=== PATIENT | male | born 1980 | race Caucasian/White ===

== ENCOUNTER 2023-05-28 20:44 | Emergency (ER) | payer MEDICAID, SELFPAY ==
[2023-05-28 20:50] VITALS: BP 200/139; PULSE 73; RESP 16; TEMP 36.3; O2SAT 98; BMI 26.2
--- NOTE | 2023-05-28 20:59 | XRR_ITS ---
PROCEDURE INFORMATION: Exam: XR Chest Exam date and time: 05/28/2023 9:12 PM Age: 43 years old Clinical indication: Other: Hypertensive; Additional info: HTN TECHNIQUE: Imaging protocol: Radiologic exam of the chest. Views: 1 view. COMPARISON: No relevant prior studies available. FINDINGS: Lungs: Clear, symmetrically inflated lungs. Pleural spaces: No pleural effusion. No pneumothorax. Heart/Mediastinum: Cardiac silhouette is normal in size for technique. Bones/joints: Age appropriate. XR/XR chest 1V portable [id number] IMPRESSION: No acute cardiopulmonary abnormality.
--- NOTE | 2023-05-28 21:03 | W.ED.GENADLT ---
HPI - General Adult General: Chief complaint: General Medical Stated complaint: High Blood Pressure Time Seen by Provider: 05/28/23 20:59 History of Present Illness: 43-year-old male patient comes in today with headache and elevated blood pressure. Patient reports he has had blood pressure high for several years now but has been without treatment for the last 2 years. Patient had been on lisinopril up to about 2 years ago. 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 Patient appears nontoxic. Patient reports no chest pain or shortness of breath. Associated symptoms: Reports headache(s); Deny chest pain or dyspnea Review of Systems General: Reports: 10 or more systems reviewed and unremarkable except in HPI and below Card: Denies: chest pain Resp: Denies: dyspnea Neuro: Reports: headache(s) Physical Exam Const: COMMON NORMALS: alert HENMT: COMMON NORMALS: normocephalic HEAD & SCALP: normocephalic Neck/C-Spine: COMMON NORMALS: full ROM and no meningeal signs Resp: COMMON NORMALS: normal respiratory effort and clear to auscultation bilaterally AUSCULTATION: clear to auscultation bilaterally Cardio: COMMON NORMALS: regular rate and regular rhythm RATE: regular rate RHYTHM: regular rhythm GI: COMMON NORMALS: Soft to palpation and non-tender PALPATION: Yes Soft to palpation Back/Pelvis: COMMON NORMALS: thoracic and lumbar spine normal to inspection Extremity: COMMON NORMALS: no pedal edema Neuro: SENSORIUM/ORIENTATION: Yes alert MENINGEAL SIGNS: Yes no meningeal signs Skin: COMMON NORMALS: turgor normal GENERAL SKIN EXAM: turgor normal Course Vital Signs: Vital signs: Vital Signs Temperature 97.4 F L 05/28/23 20:50 Pulse Rate 73 05/28/23 20:50 Respiratory Rate 16 05/28/23 20:50 Blood Pressure 200/139 05/28/23 20:50 Pulse Oximetry 98 05/28/23 20:50 Oxygen Delivery Me thod Room Air 05/28/23 20:50 [facility] - General Adult Medical Decision Making 43-year-old male patient presents today with complaints of elevated blood pressure and headache. Patient appears nontoxic. No focal neural deficits were noted. Patient moves all extremities well. Skin is warm and dry. No edema is noted in the extremities. Lungs are clear to auscultation. Vital signs no elevated blood pressure 200/139. Differential diagnosis includes uncontrolled hypertension, substance use disorder, CHF, CKD, hypertensive emergency. EKG showed no abnormalities. Chest x-ray was normal. CBC and CMP were unremarkable. BNP was normal. Patient was given 20 of labetalol which brought blood pressure down to 170/110. Patient was also given 20 mg of lisinopril. Patient be continued on 20 mg lisinopril with recommendations for follow-up with primary care for recheck of blood pressure in 1 week. Patient reported understanding of care plan and need for follow-up or return to the ER. Patient was stable and discharged home. Lab Data 05/28/23 21:15 05/28/23 21:15 Radiology Impressions Chest X-Ray 05/28/23 20:59 IMPRESSION: No acute cardiopulmonary abnormality. Laboratory Results WBC 7.77 10^3/uL (3.29-11.43) 05/28/23 21:15 RBC 4.78 10^6/uL (3.85-5.65) 05/28/23 21:15 Hgb 14.40 g/dL (11.27-16.99) 05/28/23 21:15 Hct 42.7 % (37-53) 05/28/23 21:15 MCV 89.3 fl (82-101) 05/28/23 21:15 MCH 30.1 pg (27-33) 05/28/23 21:15 MCHC 33.7 g/dL (30-55) 05/28/23 21:15 RDW 13.0 % (12.1-15.1) 05/28/23 21:15 Plt Count 306 10^3/cmm (157-399) 05/28/23 21:15 MPV 9.4 fL (7.4-10.4) 05/28/23 21:15 Neut % (Auto) 54.6 % 05/28/23 21:15 Lymph % (Auto) 30.6 % 05/28/23 21:15 [place] % (Auto) 10.2 % 05/28/23 21:15 Eos % (Auto) 4.0 % 05/28/23 21:15 Baso % (Auto) 0.3 % 05/28/23 21:15 Neut # (Auto) 4.25 10^3/uL (1.8-7.7) 09/16/23 21:15 Lymph # (Auto) 2.4 10^3/uL (0.8-4.8) 05/28/23 21:15 [place] # (Auto) 0.8 10^3/uL (0.2-0.9) 05/28/23 21:15 Eos # (Auto) 0.3 10^3/uL (0.0-0.8) 05/28/23 21:15 Baso # (Auto) 0.0 10^3/uL (0.0-0.1) 05/28/23 21:15 Nucleated RBC % (auto) 0 % 05/28/23 21:15 Nucleated RBCs # 0.0 /100WBC 05/28/23 21:15 Sodium 140 mmol/L (136-145) 05/28/23 21:15 Potassium 3.9 mmol/L (3.5-5.1) 05/28/23 21:15 Chloride 105 mmol/L (98-107) 05/28/23 21:15 Carbon Dioxide 28 mmol/L (22-29) 05/28/23 21:15 Anion Gap 10.9 (5-19) 05/28/23 21:15 BUN 15 mg/dL (6-20) 05/28/23 21:15 Creatinine 0.9 mg/dL (0.7-1.2) 05/28/23 21:15 GFR Calculation 91.7 mL/min (90-130) 05/28/23 21:15 Glucose 96 mg/dL (65-115) 05/28/23 21:15 Calculated Osmolality 291 mOsm/kg (285-295) 05/28/23 21:15 Calcium 8.7 mg/dL (8.5-10.5) 05/28/23 21:15 Total Bilirubin 0.2 mg/dL (0.15-1.2) 05/28/23 21:15 AST 13 U/L (0-40) 05/28/23 21:15 ALT 10 U/L (0-41) 05/28/23 21:15 Alkaline Phosphatase 63 U/L (40-130) 05/28/23 21:15 NT-Pro-B Natriuret Pep 36 pg/mL (0-125) 05/28/23 21:15 Total Protein 6.6 g/dL (6.6-8.7) 05/28/23 21:15 Albumin 3.9 g/dL (3.5-5.2) 05/28/23 21:15 Globulin 2.7 g/dL (1.3-4.6) 05/28/23 21:15 All radiology interpretation(s) finalized by discharge EKG Data EKG 1: EKG interpretation date: 05/28/23 EKG interpretation time: 21:55 Prior EKG tracings: not available for review Interpretation: Sinus rhythm with a regular rate at [address] elevation or ectopy is noted. No prior exam was available for comparison. Computer generated interpretation: Chest X-Ray 05/28/23 20:59 IMPRESSION: No acute cardiopulmonary abnormality. Computer reported EKG is sinus bradycardia, borderline EKG, unconfirmed report. Discharge Plan Discharge Patient Disposition: Home Clinical Impression: Hypertension, uncontrolled Condition: Stable Prescriptions: New lisinopril 20 mg tablet 10 mg PO DAILY Qty: 30 3RF Discharge Orders: Discharge ED (Routine); Ordered 05/28/23 Ordered By: Lamine Hernandez Discharge Diet: Usual diet Discharge Activity: Increase activity as tolerated Patient Instructions: Hypertension (ED) Activity Restrictions/Additional Instructions: Home and rest. Activity as tolerated. Drink plenty of water and fluids. Take lisinopril 20 mg daily. When starting the medication may need to change positions slowly as it may cause lightheadedness or dizziness with sudden movements or standing too quickly. Usually this resolves as your body adjusts to the change in your blood pressure. Use acetaminophen as needed for pain. Follow-up with primary care in 1 to 2 weeks for recheck. Return to ED for new concerns. Coding Level of Care Code ED Ship Rigger for Fitz Peoples
[2023-05-28 21:21] LABS: Basophils % 0.3 %; Eosinophils # 0.3 10^3/uL (0.0-0.8); Hematocrit 42.7 % (37-53); Lymphocytes # 2.4 10^3/uL (0.8-4.8); Lymphocytes % 30.6 %; Mean Corpuscular HGB Conc 33.7 g/dL (30-55); Mean Corpuscular Hemoglobin 30.1 pg (27-33); Mean Corpuscular Volume 89.3 fl (82-101); Mean Platelet Volume 9.4 fL (7.4-10.4); Monocytes # 0.8 10^3/uL (0.2-0.9); Monocytes % 10.2 %; Neutrophils # 4.25 10^3/uL (1.8-7.7); Neutrophils % 54.6 %; Nucleated Red Blood Cells % 0 %; Platelet Count 306 10^3/cmm (157-399); Red Blood Count 4.78 10^6/uL (3.85-5.65); White Blood Count 7.77 10^3/uL (3.29-11.43)
--- NOTE | 2023-05-28 21:49 | ECG_ITS ---
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 Measurements Intervals [place] Rate: 57 P: 21 ND: 149 QRS: 50 QRSD: 84 T: 59 QT: 384 QTc: 374 Interpretive Statements SINUS BRADYCARDIA No previous ECG available for comparison Electronically Signed On 05-29-2023 5:10:11 CDT by Camila Montenegro M.D. [id number]
[2023-05-28] MEDS: labetalol 5 mg/mL SDV 20mL 20 MG IVP (21:51)
[2023-05-28] MEDS: lisinopril 20 mg Tablet PO (21:52)
[2023-05-28 21:59] LABS: Alanine Aminotransferase 10 U/L (0-41); Albumin Level 3.9 g/dL (3.5-5.2); Alkaline Phosphatase 63 U/L (40-130); Anion Gap 10.9 (5-19); Aspartate Amino Transferase 13 U/L (0-40); Blood Urea Nitrogen 15 mg/dL (6-20); Calcium 8.7 mg/dL (8.5-10.5); Carbon Dioxide 28 mmol/L (22-29); Chloride 105 mmol/L (98-107); Globulin 2.7 g/dL (1.3-4.6); Glomerular Filtration Rate 91.7 mL/min (90-130); Glucose 96 mg/dL (65-115); NT Pro B Type Natriuretic Pept 36 pg/mL (0-125); Osmolality Calculated 291 mOsm/kg (285-295); Potassium 3.9 mmol/L (3.5-5.1); Sodium 140 mmol/L (136-145); Total Bilirubin 0.2 mg/dL (0.15-1.2); Total Protein 6.6 g/dL (6.6-8.7)
[2023-05-28 22:24] VITALS: BP 179/111; PULSE 94; RESP 23; O2SAT 97
[2023-05-28 22:58] VITALS: BP 155/99; PULSE 69; RESP 16; O2SAT 97
== END 2023-05-28 22:59 | disposition home or self-care (01) ==
PROVIDERS: Emergency Provider Nurse Practitioner Family
DX: I10 Essential (primary) hypertension (principal)
CPT/HCPCS: 71045; 80053; 83880; 85025; 93005; 96374; 99285; J3490

== ENCOUNTER 2023-05-31 21:31 | Emergency (ER) | payer MEDICAID, SELFPAY ==
[2023-05-31 21:38] VITALS: BP 208/121; PULSE 72; RESP 16; TEMP 37.1; O2SAT 99; BMI 26.2
--- NOTE | 2023-05-31 22:26 | W.ED.GENADLT ---
HPI - General Adult General: Chief complaint: General Medical Stated complaint: bp Time Seen by Provider: 05/31/23 22:14 Source: patient Mode of arrival: ambulatory Limitations: no limitations History of Present Illness: Patient is a nice 43-year-old male who presents to the ED today after he was told to come here by [facility] for elevated blood pressure reading. Patient states he is completely asymptomatic. Patient was here approximately 2 days ago for same complaint. He was prescribed lisinopril which she states he did not get filled until early this morning. He has had one dose. Patient had extensive ED work-up on his last visit which was all benign. Patient tells me he has had chronic hypertension for years stating his diastolic number is never below 100 and is not uncommon for his systolics to be as high as 170s to 190s. Onset (ago): year(s) Associated symptoms: Reports no associated symptoms; Deny chest pain, confusion, dyspnea, headache(s), malaise, nausea, rash, syncope or vomiting Treatments prior to arrival: none Review of Systems Const: Denies: fever(s), chills, body aches, fatigue or malaise Eyes: Denies: change in vision, blurry vision, photophobia, floaters or seeing flashes Card: Denies: chest pain, lightheadedness, syncope, pre-syncope or dyspnea on exertion Resp: Denies: dyspnea GI: Denies: abdominal pain, nausea or vomiting Musc: Denies: neck pain, back pain, extremity pain or joint pain Skin/Breast: Denies: rash Neuro: Denies: headache(s), numbness in extremities, weakness in extremities, sensory changes, lack of coordination, difficulty walking, frequent falls, dizziness, vertigo or confusion Physical Exam Const: COMMON NORMALS: no acute distress, average body habitus, patient oriented x3, no limitations, healthy appearing, alert and well nourished HENMT: FACE & SINUS: normal facial exam Eye: COMMON NORMALS: Equal, round and reactive pupils present and EOMs intact bilaterally GENERAL EYE: appearance normal, both eyes and all related structures and normal light reflex PUPIL: Yes Equal, round and reactive pupils present DIRECT OPHTHALMOSCOPY: Yes normal light reflex Neck/C-Spine: COMMON NORMALS: no JVD Resp: COMMON NORMALS: normal respiratory effort and clear to auscultation bilaterally AUSCULTATION: clear to auscultation bilaterally Cardio: COMMON NORMALS: no JVD, regular rate and regular rhythm RATE: regular rate RHYTHM: regular rhythm GI: COMMON NORMALS: Normal to inspection, nondistended, normoactive bowel sounds present, Soft to palpation and non-tender PALPATION: Yes Soft to palpation Extremity: COMMON NORMALS: capillary refill normal, no joint enlargement, no clubbing, cyanosis or edema, no calf tenderness and no pedal edema Neuro: PEGGY COMA SCALE: document GCS findings [place] coma scale eye opening: Spontaneous [place] coma scale verbal response: Orientated Peggy coma scale motor response: Obey commands Peggy coma scale total score: 15 COMMON NORMALS: patient oriented x3, moves all extremities, no focal motor deficits and no sensory deficits noted SENSORIUM/ORIENTATION: Yes alert Skin: COMMON NORMALS: no rashes or lesions noted GENERAL SKIN EXAM: no rashes or lesions noted Course Vital Signs: Vital signs: Vital Signs Temperature 98.7 F 05/31/23 21:38 Pulse Rate 78 05/31/23 23:44 Respiratory Rate 16 05/31/23 23:44 Blood Pressure 170/118 05/31/23 23:44 Pulse Oximetry 98 05/31/23 23:44 Oxygen Delivery Me thod Room Air 05/31/23 22:42 MDM - General Adult Medical Decision Making Last ED visit and work-up reviewed. Findings were benign. Patient arrives today with a blood pressure of 208/121. He was given labetalol and lisinopril here and upon my re-examination blood pressure is reading 160s/100s. At this point patient has chronic significantly elevated hypertension but is asymptomatic. We do not need to lower this any further from an emergency standpoint nor does he need rapid lowering at home. I will place him on lisinopril 20 mg twice daily with recommendations to keep a blood pressure log and they can adjust dose or add additional medication every 1 to 2 weeks based on response. Return to ED precautions given. No radiology studies performed this visit Discharge Plan Discharge Patient Disposition: Home Clinical Impression: Hypertension, uncontrolled Condition: Stable Prescriptions: Changed lisinopril 20 mg tablet 20 mg PO BID Qty: 60 0RF Discharge Orders: Discharge ED (Routine); Ordered 05/31/23 Ordered By: Joellen Casey Patient Instructions: Hypertension Activity Restrictions/Additional Instructions: As we discussed we will increase your lisinopril to 20 mg twice daily. Please keep a blood pressure log (twice daily) and follow-up with your primary care provider in 1 to 2 weeks. As we discussed there is no need to emergently lower your blood pressure as you have chronic asymptomatic hypertension. This needs to be lowered slowly over the course of the next few weeks. Coding Level of Care Code ED Manager Solution for Fitz Peoples
[2023-05-31] MEDS: labetalol 5 mg/mL SDV 20mL 20 MG IVP (22:39)
[2023-05-31] MEDS: lisinopril 20 mg Tablet PO (22:39)
[2023-05-31 22:42] VITALS: BP 189/125; PULSE 69; RESP 14; O2SAT 98
[2023-05-31 23:00] VITALS: BP 188/114; PULSE 63; RESP 23; O2SAT 96
[2023-05-31 23:30] VITALS: BP 166/118; PULSE 67; RESP 16; O2SAT 97
[2023-05-31 23:44] VITALS: BP 170/118; PULSE 78; RESP 16; O2SAT 98
== END 2023-05-31 23:45 | disposition home or self-care (01) ==
PROVIDERS: Emergency Provider Physician Assistant
DX: I10 Essential (primary) hypertension (principal)
CPT/HCPCS: 96374; 99284; J3490

== ENCOUNTER 2023-06-16 20:08 | Emergency (ER) | payer MEDICAID, SELFPAY ==
[2023-06-16 21:11] VITALS: BP 186/132; PULSE 85; RESP 16; TEMP 36.8; O2SAT 98; BMI 26.6
[2023-06-16 21:19] LABS: Basophils % 0.4 %; Eosinophils # 0.3 10^3/uL (0.0-0.8); Eosinophils % 3.4 %; Hematocrit 42.1 % (37-53); Lymphocytes # 2.2 10^3/uL (0.8-4.8); Lymphocytes % 27.2 %; Mean Corpuscular HGB Conc 33.7 g/dL (30-55); Mean Corpuscular Hemoglobin 30.6 pg (27-33); Mean Corpuscular Volume 90.7 fl (82-101); Mean Platelet Volume 9.3 fL (7.4-10.4); Monocytes # 0.8 10^3/uL (0.2-0.9); Monocytes % 10.1 %; Neutrophils # 4.81 10^3/uL (1.8-7.7); Neutrophils % 58.5 %; Nucleated Red Blood Cells % 0 %; Platelet Count 311 10^3/cmm (157-399); Red Blood Count 4.64 10^6/uL (3.85-5.65); Red Cell Distribution Width 13.8 % (12.1-15.1); White Blood Count 8.21 10^3/uL (3.29-11.43)
[2023-06-16 21:38] LABS: Alanine Aminotransferase 21 U/L (0-41); Albumin Level 4.1 g/dL (3.5-5.2); Alkaline Phosphatase 66 U/L (40-130); Anion Gap 13.5 (5-19); Aspartate Amino Transferase 18 U/L (0-40); Blood Urea Nitrogen 14 mg/dL (6-20); Calcium 8.5 mg/dL (8.5-10.5); Carbon Dioxide 28 mmol/L (22-29); Chloride 104 mmol/L (98-107); Globulin 2.5 g/dL (1.3-4.6); Glomerular Filtration Rate 38.7 mL/min (90-130); Glucose 92 mg/dL (65-115); Osmolality Calculated 292 mOsm/kg (285-295); Potassium 4.5 mmol/L (3.5-5.1); Sodium 141 mmol/L (136-145); Total Bilirubin 0.2 mg/dL (0.15-1.2); Total Protein 6.6 g/dL (6.6-8.7)
[2023-06-16 22:17] VITALS: BP 152/100; PULSE 61; RESP 16; O2SAT 98
--- NOTE | 2023-06-16 22:22 | ED_ITS ---
HPI - Recheck/Abnormal Lab/Rx General: Chief Complaint: Recheck/Abnormal Lab/Rx Stated Complaint: hbp Time Seen by Provider: 06/16/23 22:06 Source: patient Mode of arrival: ambulatory Limitations: no limitations History of Present Illness: 43 male is here from [facility] he has been there for meth rehab he states he has not used meth in 2 months he states he has been having hypertension states they were supposed to increase his carvedilol but they have not yet. He is on 6.25 his blood pressure here is improved states has had some slight headache she denies any severe headache denies any chest pain. Review of Systems Const: Denies: fever(s), chills, body aches or change in appetite Eyes: Denies: blurry vision or eye discomfort ENMT: Denies: throat pain or dental pain Card: Denies: chest pain Resp: Denies: dyspnea GI: Denies: abdominal pain, nausea, vomiting or diarrhea Musc: Denies: neck pain or back pain Skin/Breast: Denies: rash Neuro: Reports: headache(s) Physical Exam Const: COMMON NORMALS: no acute distress, patient oriented x3 and healthy appearing HENMT: COMMON NORMALS: normocephalic and atraumatic HEAD & SCALP: normocephalic and atraumatic Eye: COMMON NORMALS: Equal, round and reactive pupils present and EOMs intact bilaterally PUPIL: Yes Equal, round and reactive pupils present Neck/C-Spine: COMMON NORMALS: full ROM and supple Chest: COMMONS NORMALS: normal inspection of the chest and normal palpation of entire chest wall Resp: COMMON NORMALS: normal respiratory effort, No retractions, No use of accessory muscles and clear to auscultation bilaterally AUSCULTATION: clear to auscultation bilaterally Cardio: COMMON NORMALS: regular rate, regular rhythm and No murmurs present (Cardio) RATE: regular rate RHYTHM: regular rhythm GI: COMMON NORMALS: Normal to inspection, nondistended, normoactive bowel sounds present, Soft to palpation, non-tender and no masses PALPATION: Yes Soft to palpation Extremity: COMMON NORMALS: normal to inspection and full ROM Neuro: COMMON NORMALS: patient oriented x3, moves all extremities and no focal motor deficits Psych: COMMON NORMALS: mental status grossly normal, Normal thought process present and cooperative THOUGHT PROCESS: Normal thought process present Skin: COMMON NORMALS: no rashes or lesions noted and no wounds GENERAL SKIN EXAM: no rashes or lesions noted Course Vital Signs: Vital signs: Vital Signs Temperature 98.2 F 06/16/23 21:11 Pulse Rate 61 06/16/23 22:17 Respiratory Rate 16 06/16/23 22:17 Blood Pressure 152/100 06/16/23 22:17 Pulse Oximetry 98 06/16/23 22:17 Oxygen Delivery Me thod Room Air 06/16/23 21:11 MDM - Recheck/Abnormal Lab/Rx Medical Decision Making Patient presents here with hypertension we will increase his carvedilol he is stable for discharge back to [facility] Medical Records I reviewed the patient's medical records. Lab Data I reviewed the patient's lab results. 06/16/23 21:05 06/16/23 21: Laboratory Results WBC 8.21 10^3/uL (3.29-11.43) 06/16/23 21: RBC 4.64 10^6/uL (3.85-5.65) 06/16/23 21:05 Hgb 14.20 g/dL (11.27-16.99) 06/16/23 21: Hct 42.1 % (37-53) 06/16/23 21: MCV 90.7 fl (82-101) 06/16/23 21: MCH 30.6 pg (27-33) 06/16/23 21: MCHC 33.7 g/dL (30-55) 06/16/23 21: RDW 13.8 % (12.1-15.1) 06/16/23 21: Plt Count 311 10^3/cmm (157-399) 06/16/23 21: MPV 9.3 fL (7.4-10.4) 06/16/23 21: Neut % (Auto) 58.5 % 06/16/23 21: Lymph % (Auto) 27.2 % 06/16/23 21: [place] % (Auto) 10.1 % 06/16/23 21: Eos % (Auto) 3.4 % 06/16/23 21: Baso % (Auto) 0.4 % 06/16/23 21: Neut # (Auto) 4.81 10^3/uL (1.8-7.7) 06/16/23 21:05 Lymph # (Auto) 2.2 10^3/uL (0.8-4.8) 06/16/23 21:05 [place] # (Auto) 0.8 10^3/uL (0.2-0.9) 06/16/23 21:05 Eos # (Auto) 0.3 10^3/uL (0.0-0.8) 06/16/23 21:05 Baso # (Auto) 0.0 10^3/uL (0.0-0.1) 06/16/23 21:05 Nucleated RBC % (auto) 0 % 06/16/23 21:05 Nucleated RBCs # 0.0 /100WBC 06/16/23 21:05 Sodium 141 mmol/L (136-145) 06/16/23 21:05 Potassium 4.5 mmol/L (3.5-5.1) 06/16/23 21:05 Chloride 104 mmol/L (98-107) 06/16/23 21:05 Carbon Dioxide 28 mmol/L (22-29) 06/16/23 21:05 Anion Gap 13.5 (5-19) 06/16/23 21:05 BUN 14 mg/dL (6-20) 06/16/23 21:05 Creatinine 1.9 mg/dL (0.7-1.2) H 06/16/23 21:05 GFR Calculation 38.7 mL/min (90-130) L 06/16/23 21:05 Glucose 92 mg/dL (65-115) 06/16/23 21:05 Calculated Osmolality 292 mOsm/kg (285-295) 06/16/23 21:05 Calcium 8.5 mg/dL (8.5-10.5) 06/16/23 21:05 Total Bilirubin 0.2 mg/dL (0.15-1.2) 06/16/23 21:05 AST 18 U/L (0-40) 06/16/23 21:05 ALT 21 U/L (0-41) 06/16/23 21:05 Alkaline Phosphatase 66 U/L (40-130) 06/16/23 21:05 Total Protein 6.6 g/dL (6.6-8.7) 06/16/23 21:05 Albumin 4.1 g/dL (3.5-5.2) 06/16/23 21:05 Globulin 2.5 g/dL (1.3-4.6) 06/16/23 21:05 No radiology studies performed this visit Discharge Plan Discharge Patient Disposition: Home Clinical Impression: Hypertension Condition: Stable Prescriptions: New ondansetron 4 mg tablet,disintegrating 4 mg PO Q6H PRN (Reason: nausea and vomiting) Qty: 14 0RF Coreg 12.5 mg tablet 12.5 mg PO BID Qty: 60 0RF Rx Instructions: must administer with a meal/food No Action lisinopril 20 mg tablet 20 mg PO BID Qty: 60 0RF Discharge Orders: Discharge ED (Routine); Ordered 06/16/23 Ordered By: James Euceda Discharge Diet: Advance as tolerated Discharge Activity: Resume usual activity Patient Instructions: Hypertension (ED) Coding Level of Care Code ED Human Geography Instructor for Fitz Peoples
[2023-06-16] MEDS: carvedilol 6.25 mg Tablet PO (22:40)
== END 2023-06-16 22:44 | disposition home or self-care (01) ==
PROVIDERS: Physician Assistant; Emergency Provider Emergency Medicine
DX: I10 Essential (primary) hypertension (principal)
CPT/HCPCS: 36415; 80053; 85025; 99283